=== PATIENT | male | born 1970 | race Asian ===

== ENCOUNTER → 2021-06-08 08:30 | Outpatient (CLI) | payer OTHER, SELFPAY ==
[2021-06-08 20:58] LABS: COVID19 - ORCAS (NP or Nasal) Negative (Negative)
== END ==
PROVIDERS: Visit Provider Family Medicine
DX: Z20.822 Contact with and (suspected) exposure to COVID-19 (principal)
CPT/HCPCS: U0003

== ENCOUNTER → 2023-05-17 09:20 | Outpatient (CLI) | payer BC, SELFPAY ==
[2023-05-17 19:02] LABS: Add Manual Diff / Slide Review NO; Basophils Absolute Auto 0 /uL (0-100); Basophils Percent Auto 0.9 % (0-2); Eosinophils Absolute Auto 100 /uL (0-450); Eosinophils Percent Auto 1.9 % (2-4); Hematocrit 48.8 % (41-53); Hemoglobin 16.5 g/dL (13.5-17.5); Lymphocytes Absolute Auto 1000 /uL (1100-4500); Lymphocytes Percent Auto 24.7 % (25-40); Mean Corpuscular HGB Conc 33.9 % (30-36); Mean Corpuscular Volume 97.3 fL (80-100); Monocytes Absolute Auto 500 /uL (0-900); Monocytes Percent Auto 12.5 % (3-14); Neutrophils Absolute Auto 2400 /uL (1500-7000); Platelet Count 191 X10^3/uL (150-400); Red Blood Cell Count 5.02 X10^6/uL (4.5-5.9); Red Cell Distribution Width 13.7 % (11.6-14.8)
[2023-05-17 19:11] LABS: Alanine Aminotransferase 46 IU/L (<50); Albumin 4.7 g/dL (3.5-5.0); Albumin Globulin Ratio 1.4 (1.0-2.8); Alkaline Phosphatase 55 U/L (38-126); Aspartate Aminotransferase 40 IU/L (17-59); BUN Creatinine Ratio 11.7 (6-22); Blood Urea Nitrogen 12 mg/dL (9-20); Calcium 9.8 mg/dL (8.4-10.2); Carbon Dioxide 29 mmol/L (22-32); Chloride 98 mmol/L (98-107); Cholesterol 288 mg/dL (140-199); Estimated Glomerular Filt Rate > 60 mL/min (>60); Globulin 3.3 g/dL (1.7-4.1); Glucose 104 mg/dL (70-100); HDL Cholesterol 62 mg/dL (40-60); HEMOLYSIS 31 (0-50); LDL Cholesterol Calculated 199 mg/dL (<100); Potassium 4.4 mmol/L (3.4-5.1); Sodium 135 mmol/L (137-145); Triglycerides 134 mg/dL (35-150)
[2023-05-17 19:24] LABS: Bilirubin Total 0.7 mg/dL (0.2-1.3)
[2023-05-17 19:35] LABS: Prostate Specific Antigen 0.739 ng/mL (0.10-4.00)
[2023-05-24 06:09] LABS: Percent Free Testosterone 2.47 % (1.50-4.20); Testosterone Free 6.67 ng/dL (5.00-21.00)
== END ==
PROVIDERS: PCP Physician Assistant; Visit Provider Physician Assistant
DX: Z13.6 Encounter for screening for cardiovascular disorders (principal); I10 Essential (primary) hypertension; Z12.5 Encounter for screening for malignant neoplasm of prostate; Z12.11 Encounter for screening for malignant neoplasm of colon; N52.9 Male erectile dysfunction, unspecified
CPT/HCPCS: 80053; 80061; 84153; 84402; 84403; 85025

== ENCOUNTER 2023-07-21 11:41 | Day surgery (SDC) | payer BC, SELFPAY ==
[2023-07-21 12:01] VITALS: BMI 28.2
[2023-07-21 12:07] VITALS: BP 192/114; PULSE 119; RESP 16; TEMP 36.1; O2SAT 96
[2023-07-21] MEDS: LACTATED RINGERS 1,000 ML 42 ML IV (12:12)
--- NOTE | 2023-07-21 12:25 | P.HP_ITS ---
History of Present Illness History of Present Illness Date Patient Seen: 07/21/23 Time Patient Seen: 12:25 Chief complaint: Colonoscopy Narrative: Ed is a 53 year old man here for a colonoscopy. He has never had one before. No known family history of colon cancer [facility], [facility] Family History (Updated 05/15/23 @ 13:15 by Ira Casiano) Father Cancer Hyperlipidemia Mother Diabetes mellitus Hypertension Hyperlipidemia Social History household members: none Smoking Status: Never smoker Meds Home Medications and Allergies Home Medications Medication Instructions Recorded Confirmed Type ketoconazole 2 % shampoo 1 applic topical DAILY 1 week #240 05/04/23 07/21/23 Rx mL lisinopril 5 mg tablet 5 mg PO DAILY #30 tabs 05/04/23 07/21/23 Rx Allergies Allergy/AdvReac Type Severity Reaction Status Date / Time No Known Drug Allergies Allergy Verified 07/21/23 11:47 Exam Vital Signs (past 8 hours): - 07/21/23 12:07 Temperature 97.0 F L Pulse Rate 119 H Respiratory Rate 16 Blood Pressure 192/114 H Pulse Oximetry 96 Oxygen Delivery Method Room Air Oxygen Delivery Method Room Air Const General: healthy appearing Assessment & Plan Assessment and plan (1) Colon cancer screening: Status: Acute Plan We reviewed the risks and benefits of colonoscopy for colon cancer screening and he would like to proceed.
[2023-07-21 13:17] VITALS: BP 184/111; PULSE 119; RESP 25; TEMP 36.4; O2SAT 99
--- NOTE | 2023-07-21 13:18 | PM.OP.COLON ---
Operative Date/Time/Diagnoses Date of procedure: 07/21/23 Time of procedure: 13:18 Pre-op diagnosis: Colon cancer screening Post-op diagnosis: same Procedure & Clinicians Study performed: Colonoscopy Same procedure as scheduled: Yes Surgeon: Ted Pacheco Procedure Notes Procedure in detail: Surgeon: Ted Pacheco MD Anesthesia: Senthil Webster CRNA Procedure: The patient was brought to the endoscopy suite, placed in left lateral decubitus position. The patient was connected to monitoring devices. A time-out was performed. Sedation was administered. Once the patient was adequately sedated, a digital rectal exam was performed and was normal. The scope was then inserted and advanced to the cecum with some difficulty due to tortuosity of the colon. The appendiceal orifice was identified and photographed. The scope was then slowly withdrawn over greater than 6 minutes. The mucosa was thoroughly inspected. No abnormalities. The scope was retroflexed in the rectum. No abnormalities were seen. The scope was straightened and removed. The patient was awakened and brought to recovery. Scope withdrawal time: 7 minutes Sedation time: 23 minutes EBL: 0 Findings: Tortuous but otherwise normal colon Post-procedure Recommendations: Colonoscopy in 10 years Disposition: PACU
[2023-07-21 13:22] VITALS: BP 150/110; PULSE 110; RESP 13; O2SAT 98
[2023-07-21 13:27] VITALS: BP 149/110; PULSE 111; RESP 17; O2SAT 98
== END 2023-07-21 13:49 | disposition home or self-care (01) ==
PROVIDERS: PCP Physician Assistant; Referring Provider Surgery; Visit Provider Surgery
PROC: 0DJD8ZZ Inspection of Lower Intestinal Tract, Via Natural or Artificial Opening Endoscopic (ICD-10-PCS; CPT 45378; principal; 2023-07-21 12:45)
DX: Z12.11 Encounter for screening for malignant neoplasm of colon (principal)
CPT/HCPCS: 45378

== ENCOUNTER → 2023-09-26 09:21 | Outpatient (CLI) | payer BC, SELFPAY ==
[2023-09-26 20:43] LABS: Alanine Aminotransferase 48 IU/L (<50); Albumin 4.5 g/dL (3.5-5.0); Albumin Globulin Ratio 1.3 (1.0-2.8); Alkaline Phosphatase 71 U/L (38-126); Aspartate Aminotransferase 37 IU/L (17-59); BUN Creatinine Ratio 11.9 (6-22); Bilirubin Total 0.6 mg/dL (0.2-1.3); Blood Urea Nitrogen 13 mg/dL (9-20); Calcium 9.6 mg/dL (8.4-10.2); Carbon Dioxide 29 mmol/L (22-32); Chloride 101 mmol/L (98-107); Cholesterol 272 mg/dL (140-199); Estimated Glomerular Filt Rate > 60 mL/min (>60); Globulin 3.5 g/dL (1.7-4.1); Glucose 115 mg/dL (70-100); HDL Cholesterol 55 mg/dL (40-60); HEMOLYSIS < 15 (0-50); LDL Cholesterol Calculated 187 mg/dL (<100); Sodium 138 mmol/L (137-145); Triglycerides 152 mg/dL (35-150)
[2023-09-26 20:51] LABS: Add Manual Diff / Slide Review NO; Basophils Absolute Auto 0 /uL (0-100); Basophils Percent Auto 0.8 % (0-2); Eosinophils Absolute Auto 100 /uL (0-450); Hematocrit 46.3 % (41-53); Hemoglobin 15.9 g/dL (13.5-17.5); Lymphocytes Absolute Auto 1300 /uL (1100-4500); Lymphocytes Percent Auto 22.7 % (25-40); Mean Corpuscular HGB Conc 34.4 % (30-36); Mean Corpuscular Hemoglobin 32.7 PG (26-34); Monocytes Absolute Auto 600 /uL (0-900); Monocytes Percent Auto 10.7 % (3-14); Neutrophils Absolute Auto 3600 /uL (1500-7000); Neutrophils Percent Auto 63.8 % (50-75); Platelet Count 241 X10^3/uL (150-400); Red Blood Cell Count 4.87 X10^6/uL (4.5-5.9); Red Cell Distribution Width 13.5 % (11.6-14.8); White Blood Cell Count 5.7 X10^3/uL (4.5-11.0)
== END ==
PROVIDERS: PCP Physician Assistant; Visit Provider Physician Assistant
DX: D72.819 Decreased white blood cell count, unspecified (principal); I10 Essential (primary) hypertension; E78.00 Pure hypercholesterolemia, unspecified
CPT/HCPCS: 80053; 80061; 85025

== ENCOUNTER → 2024-01-10 08:59 | Outpatient (CLI) | payer BC, SELFPAY ==
[2024-01-10 19:21] LABS: Alanine Aminotransferase 35 IU/L (<50); Albumin 4.5 g/dL (3.5-5.0); Albumin Globulin Ratio 1.4 (1.0-2.8); Aspartate Aminotransferase 32 IU/L (17-59); BUN Creatinine Ratio 12.6 (6-22); Bilirubin Total 0.6 mg/dL (0.2-1.3); Blood Urea Nitrogen 13 mg/dL (9-20); Calcium 9.6 mg/dL (8.4-10.2); Carbon Dioxide 29 mmol/L (22-32); Chloride 104 mmol/L (98-107); Cholesterol 286 mg/dL (140-199); Estimated Glomerular Filt Rate > 60 mL/min (>60); Globulin 3.2 g/dL (1.7-4.1); Glucose 111 mg/dL (70-100); HDL Cholesterol 58 mg/dL (40-60); HEMOLYSIS < 15 (0-50); LDL Cholesterol Calculated 198 mg/dL (<100); Potassium 4.3 mmol/L (3.4-5.1); Sodium 137 mmol/L (137-145); Total Protein 7.7 g/dL (6.3-8.2); Triglycerides 148 mg/dL (35-150)
[2024-01-10 19:37] LABS: Alkaline Phosphatase 69 U/L (38-126)
== END ==
PROVIDERS: PCP Physician Assistant; Visit Provider Physician Assistant
DX: E78.00 Pure hypercholesterolemia, unspecified (principal); I10 Essential (primary) hypertension; Z79.899 Other long term (current) drug therapy
CPT/HCPCS: 80053; 80061